=== PATIENT | male | born 1955 | race Caucasian/White ===

== ENCOUNTER → 2020-02-20 11:04 | Outpatient (CLI) | payer OTHER, SELFPAY ==
[2020-02-20 12:35] LABS: Hemoglobin A1C% w Est Avg Glu 5.9 % (4.0-6.0)
== END ==
PROVIDERS: PCP Internal Medicine; Referring Provider Internal Medicine; Visit Provider Internal Medicine
DX: E11.9 Type 2 diabetes mellitus without complications (principal)
CPT/HCPCS: 36415; 83036

== ENCOUNTER → 2020-08-24 09:39 | Outpatient (CLI) | payer OTHER, SELFPAY ==
[2020-08-24 10:35] LABS: Add Manual Diff / Slide Review NO; Basophils Absolute Auto 0 /uL (0-100); Basophils Percent Auto 0.6 % (0-2); Eosinophils Absolute Auto 100 /uL (0-450); Eosinophils Percent Auto 1.9 % (2-4); Hematocrit 43.6 % (41-53); Hemoglobin 14.8 g/dL (13.5-17.5); Lymphocytes Absolute Auto 1600 /uL (1100-4500); Lymphocytes Percent Auto 25.8 % (25-40); Mean Corpuscular Hemoglobin 29.7 PG (26-34); Mean Corpuscular Volume 87.3 fL (80-100); Monocytes Absolute Auto 400 /uL (0-900); Monocytes Percent Auto 7.1 % (3-14); Neutrophils Absolute Auto 4000 /uL (1500-7000); Neutrophils Percent Auto 64.6 % (50-75); Platelet Count 165 X10^3/uL (150-400); Red Blood Cell Count 4.99 X10^6/uL (4.5-5.9); Red Cell Distribution Width 13.4 % (11.6-14.8); White Blood Cell Count 6.3 X10^3/uL (4.5-11.0)
[2020-08-24 10:36] LABS: Hemoglobin A1C% w Est Avg Glu 6.3 % (4.0-6.0)
[2020-08-24 10:51] LABS: Alanine Aminotransferase 24 IU/L (<50); Albumin 4.3 g/dL (3.5-5.0); Albumin Globulin Ratio 1.2 (1.0-2.8); Alkaline Phosphatase 109 U/L (38-126); Aspartate Aminotransferase 25 IU/L (17-59); BUN Creatinine Ratio 19.4 (6-22); Bilirubin Total 0.5 mg/dL (0.2-1.3); Blood Urea Nitrogen 19 mg/dL (9-20); Calcium 9.6 mg/dL (8.4-10.2); Carbon Dioxide 30 mmol/L (22-32); Chloride 106 mmol/L (98-107); Cholesterol 145 mg/dL (140-199); Estimated Glomerular Filt Rate > 60.0 mL/min (>60); Globulin 3.5 g/dL (1.7-4.1); Glucose 126 mg/dL (80-110); HDL Cholesterol 37 mg/dL (40-60); HEMOLYSIS < 15 (0-50); LDL Cholesterol Calculated 85 mg/dL (<100); Potassium 4.6 mmol/L (3.4-5.1); Sodium 142 mmol/L (137-145); Total Protein 7.8 g/dL (6.3-8.2); Triglycerides 114 mg/dL (35-150)
[2020-08-24 11:22] LABS: Prostate Specific Antigen 0.461 ng/mL (0.10-4.00)
== END ==
PROVIDERS: Referring Provider Family Medicine; Visit Provider Family Medicine
DX: K21.9 Gastro-esophageal reflux disease without esophagitis (principal); R73.03 Prediabetes; Z12.5 Encounter for screening for malignant neoplasm of prostate; I10 Essential (primary) hypertension
CPT/HCPCS: 36415; 80053; 80061; 83036; 84153; 85025

== ENCOUNTER → 2020-11-08 09:22 | Outpatient (CLI) | payer OTHER, SELFPAY ==
[2020-11-08 10:30] LABS: Hemoglobin A1C% w Est Avg Glu 6.5 % (4.0-6.0)
[2020-11-08 10:48] LABS: Alanine Aminotransferase 44 IU/L (<50); Albumin Globulin Ratio 1.2 (1.0-2.8); Alkaline Phosphatase 121 U/L (38-126); Aspartate Aminotransferase 33 IU/L (17-59); Bilirubin Total 0.5 mg/dL (0.2-1.3); Blood Urea Nitrogen 12 mg/dL (9-20); Calcium 9.5 mg/dL (8.4-10.2); Carbon Dioxide 30 mmol/L (22-32); Chloride 107 mmol/L (98-107); Cholesterol 99 mg/dL (140-199); Estimated Glomerular Filt Rate > 60.0 mL/min (>60); Globulin 3.3 g/dL (1.7-4.1); Glucose 127 mg/dL (80-110); HDL Cholesterol 38 mg/dL (40-60); HEMOLYSIS < 15 (0-50); LDL Cholesterol Calculated 41 mg/dL (<100); Potassium 4.4 mmol/L (3.4-5.1); Sodium 141 mmol/L (137-145); Total Protein 7.3 g/dL (6.3-8.2); Triglycerides 102 mg/dL (35-150)
== END ==
PROVIDERS: PCP Internal Medicine; Referring Provider Internal Medicine; Visit Provider Internal Medicine
DX: E11.9 Type 2 diabetes mellitus without complications (principal); E78.2 Mixed hyperlipidemia; G62.9 Polyneuropathy, unspecified; I10 Essential (primary) hypertension
CPT/HCPCS: 36415; 80053; 80061; 83036

== ENCOUNTER → 2020-12-01 09:05 | Outpatient (CLI) | payer OTHER, SELFPAY ==
[2020-12-01 10:24] LABS: COVID19 -Nasal RAPID Negative (Negative)
== END ==
PROVIDERS: PCP Internal Medicine; Visit Provider Surgery
DX: Z20.822 Contact with and (suspected) exposure to COVID-19 (principal)
CPT/HCPCS: 87635; C9803

== ENCOUNTER 2020-12-02 07:28 | Day surgery (SDC) | payer OTHER, SELFPAY ==
--- NOTE | 2020-12-02 | PATH_ITS ---
[facility] Accession Number: [id number] . 01 Material submitted: . PART A: duodenum - DUODENUM BIOPSY PART B: gastrointestinal site - STOMACH BIOPSY PART C: gastrointestinal site - POLYP X2 FROM STOMACH PART D: esophagus - ESOPHAGUS BIOPSY . 01 Clinical history: . EGD . 02 Diagnosis: A. Duodenum, Biopsy: Duodenal mucosa with no diagnostic abnormality. Negative for active inflammation, features of sprue, dysplasia, or malignancy. . B. Stomach, Biopsy: Antral and body-type mucosa with no diagnostic abnormality. No evidence of Helicobacter organisms on H/E stain. Negative for intestinal metaplasia. Negative for dysplasia and malignancy. . C. Stomach, Polyps x2, Biopsies: Fundic gland polyps. No evidence of Helicobacter organisms on H/E stain. Negative for intestinal metaplasia. Negative for dysplasia and malignancy. . D. Esophagus, Biopsy: Squamocolumnar junctional mucosa with specialized intestinal metaplasia, consistent with Daniel's esophagus. Negative for dysplasia and malignancy. [facility] 12/08/2020 1407 Local . 02 Comment: Part B: An immunohistochemical stain will be performed to evaluate for Helicobacter organisms and the results reported as an addendum. . 02 Electronically signed: . Corie Mead MD, Pathologist NPI- [id number] . 01 Gross description: . Part A: DUODENUM BIOPSY: Received in formalin are 2 fragment(s) of cervantes, soft tissue measuring 0.3 x 0.2 x 0.2 cm to 0.2 x 0.2 x 0.2 cm submitted entirely in 1 cassette(s) Part B: STOMACH BIOPSY: Received in formalin are 2 fragment(s) of cervantes, soft tissue measuring 0.5 x 0.3 x 0.2 cm to 0.3 x 0.2 x 0.2 cm submitted entirely in 1 cassette(s) Part C: POLYP X2 FROM STOMACH: Received in formalin are 3 fragment(s) of cervantes, soft tissue measuring 0.4 x 0.4 x 0.3 cm to 0.1 x 0.1 x 0.1 cm submitted entirely in 1 cassette(s) Part D: ESOPHAGUS BIOPSY: Received in formalin are 4 fragment(s) of ecrvantes, soft tissue measuring 0.3 x 0.2 x 0.2 cm to 0.1 x 0.1 x 0.1 cm submitted entirely in 1 cassette(s) /[facility] 12/06/2020 1305 Local . 02 Pathologist provided ICD-10: R13.10, K22.70 . 02 CPT . 854364, 949865, 240610, 316615, D95486 Performed at: 01 [facility] [address] [id number] MD Valentino Christy MD Phone: [phone] Performed at: 02 [facility] [address] [place] [id number] MD Corie Mead MD Phone: [phone]
--- NOTE | 2020-12-02 07:50 | PM.HP.1 ---
History of Present Illness History of Present Illness Date Patient Seen: 12/02/20 Time Patient Seen: 07:50 Chief complaint: EGD Narrative: This is a 65-year-old man with history of gastroesophageal reflux disease treated with omeprazole for the past 2 years. He also has type 2 diabetes which is controlled, and hypertension. He reports symptoms of abnormal swallowing, with needing to cough out his secretions several times during the day, resulting in regurgitating dark fluid into his mouth from the GI tract. He says he has been evaluated by ENT, and they felt that significant contributor to his symptoms was his acid reflux. He is concerned that, even on omeprazole daily he continues to have these symptoms. Interval events: The patient has full hearing loss in his right ear, which is new since his last visit in the office. ROS: Denies heartburn. Denies chest pain. Positive for cough, coughing up sputum, Thirteen system review is otherwise negative other than as mentioned below and in HPI. PE: GENERAL: Well groomed and cooperative. Appears stated age. Answers questions promptly and appropriately. Vital signs noted. HENT: Normocephalic, atraumatic. Hearing intact. EYES: Conjunctiva pink, sclera white, no periorbital swelling. CARDIOVASCULAR: Regular rate. No pedal edema. No sternal or chest wall tenderness palpation RESPIRATORY: Non-tachypneic, breathing comfortably on room air. GASTROINTESTINAL: Abdomen soft and non-distended, nontender, no epigastric tenderness. GENITALURINARY: No flank tenderness. MUSCULOSKELETAL: Equal tone and mass bilaterally. SKIN: Warm, dry, soft, appropriate color for ethnicity. No other lesions, rashes, or wounds. NEURO: Alert and Oriented X 3. No gross sensory deficits, or cognitive issues. PSYCH: Appropriate affect and mood. Patient History Medical History Diabetes type 2, controlled Foot pain GERD (gastroesophageal reflux disease) Hearing loss Hypertension Mixed hyperlipidemia Peripheral neuropathy Surgical History Anesthesia History of back surgery History of hand surgery History of hand surgery Family & Social History Family History Father Diabetes mellitus Stroke Mother Cancer Brother Diabetes mellitus Hypertension Stroke Sister Diabetes mellitus Sister Diabetes mellitus Social History: household members spouse Tobacco & Substance use: Smoking Status Never smoker alcohol intake former Meds Home Medications and Allergies Home Medications Medication Instructions Recorded Confirmed Type amlodipine 5 mg tablet 5 mg PO BID #180 tab 08/20/20 11/16/20 Rx atorvastatin 40 mg tablet 40 mg PO DAILY #90 tab 08/30/20 11/16/20 Rx vitamin B comp and C no.3 15 mg-10 1 cap PO DAILY 09/09/20 11/16/20 History mg-50 mg-5 mg-300 mg capsule triamcinolone acetonide 0.1 % 1 applic TOPICAL BID #80 g 11/16/20 11/16/20 Rx topical cream esomeprazole magnesium [Nexium 20 mg PO DAILY 12/02/20 12/02/20 History 24HR] Allergies Allergy/AdvReac Type Severity Reaction Status Date / Time No Known Drug Allergies Allergy Verified 12/02/20 07:53 Assessment & Plan Assessment and plan (1) Diabetes type 2, controlled: Qualifiers: Diabetes mellitus complication status: without complication Diabetes mellitus residential insulin use: without residential use Qualified Code(s): E11.9 - Type 2 diabetes mellitus without complications Status: Acute (2) Mixed hyperlipidemia: Status: Acute (3) Hypertension: Qualifiers: Hypertension type: essential hypertension Qualified Code(s): I10 - Essential (primary) hypertension Status: Chronic (4) GERD (gastroesophageal reflux disease): Qualifiers: Esophagitis bleeding: without hemorrhage Esophagitis presence: with esophagitis Qualified Code(s): K21.00 - Gastro-esophageal reflux disease with esophagitis, without bleeding Status: Chronic (5) Peripheral neuropathy: Qualifiers: Peripheral neuropathy type: idiopathic neuropathy, unspecified Qualified Code(s): G60.9 - Hereditary and idiopathic neuropathy, unspecified Status: Chronic Assessment & Plan narrative: Risks and benefits of screening EGD and possible biopsy were discussed with the patient including risk of bleeding, perforation, need for additional procedures, risks of anesthesia. The patient desires to proceed with the EGD procedure. COVID-19 COVID-19 status: Negative Result date/Date tested (Pos, Neg/Pending): 12/01/20 Time Spent With Patient Time with patient: 15-24 minutes Quality VTE Deep Vein Thrombosis/Pulmonary Embolism Present on Admission: No
[2020-12-02] MEDS: SODIUM CHLORIDE 0.9% 1,000 ML 200 ML IV (07:52)
[2020-12-02 07:55] VITALS: BP 147/78; PULSE 72; RESP 16; TEMP 36.6; O2SAT 99; BMI 32.1
--- NOTE | 2020-12-02 08:30 | PM.OP.ENDO ---
Operative Date/Time/Diagnoses Date of procedure: 12/02/20 Time of procedure: 08:30 Pre-op diagnosis: Chronic reflux symptoms unresponsive to omeprazole Post-op diagnosis: other (5 cm tongues of salmon-colored mucosa coming up into the esophagus consistent with Daniel's esophagus, gastric polyps consistent with PPI use, mild gastritis) Procedure & Clinicians Study performed: Esophagogastroduodenoscopy Procedural sedation performed by the endoscopist Biopsies of duodenum, stomach, distal esophagus with standard forceps Gastric polypectomy with cold snare Same procedure as scheduled: Yes Indications: Chronic reflux symptoms unresponsive to omeprazole Surgeon: Janene Arora Procedure Notes SCOAP/Timeout: Performed Procedure in detail: The patient was brought to the room and placed in left lateral decubitus position with all bony prominences padded. A bite block was positioned in the patient's mouth to protect the lips, teeth, and tongue for the procedure. A time-out was performed and then the patient was given procedural sedation starting with 4 mg of Versed and 100 mcg of fentanyl. Total of 6 mg of Versed and 100 micro g of fentanyl were given for the entire procedure. Vitals were monitored throughout the procedure and remained stable. Once adequately sedated, the procedure was begun. The lubricated gastroscope was passed through the bite block and across the tongue and into the esophagus without incident. A tubular view of the esophagus was maintained as the scope was advanced through the esophagus and into the stomach. The scope was advanced through the stomach and to the pylorus. The scope was gently popped through the pylorus and into the duodenal bulb. The scope was flexed and advanced into the second and third portions of the duodenum. The duodenum and duodenal bulb revealed some mild inflammatory changes. Biopsies were taken. The scope was withdrawn into the stomach. The stomach Revealed some mild inflammatory changes. Biopsies were taken. There were numerous polyps in the stomach consistent with PPI. Two were removed with cold snare to confirm they are benign on pathology. The scope was retroflexed and the gastric cardia was examined. The hiatus aas gaping around the scope consistent with a Hill grade 4 hiatal hernia. The scope was then straightened, and withdrawn into the esophagus. There were large tongues of salmon-colored mucosa coming up into the esophagus consistent with significant Daniel's esophagus. These were 3-5 cm in length. Multiple biopsies were taken. The remainder of the esophagus was centrally normal. There was a gastric inlet patch in the proximal esophagus. The scope was then withdrawn through the esophagus with a tubular view. The scope was then withdrawn from the patient the procedure was concluded. The patient tolerated the procedure well and was transferred to the PACU in stable condition. Sedation minutes: 17 Findings: Daniel's esophagus, gastritis and polyp (Benign-appearing gastric polyps) Specimen(s): other (Biopsies of duodenum, stomach, stomach polyps, distal esophagus) Complications: none Impression: Significant Daniel's esophagus, mild gastritis, benign appearing gastric polyps Post-procedure Recommendations: Other recommendation (Follow-up in the office to discuss biopsy results, increase PPI to 40 mg twice daily) Follow up: as needed Disposition: PACU
[2020-12-02] MEDS: LIDOCAINE 4% SOLN 50 ML 20 ML TOP (08:53)
[2020-12-02] MEDS: MIDAZOLAM 5 MG/5 ML VIAL IV (08:55)
[2020-12-02] MEDS: fentaNYL 250 MCG/5 ML INJ IV (08:56)
[2020-12-02 09:01] VITALS: BP 128/89; PULSE 69; RESP 17; TEMP 36.6; O2SAT 95
[2020-12-02 09:06] VITALS: BP 123/85; PULSE 74; RESP 12; O2SAT 94
[2020-12-02 09:11] VITALS: BP 127/81; PULSE 88; RESP 13; O2SAT 95
[2020-12-02 09:20] VITALS: BP 127/83; PULSE 83; RESP 19; TEMP 36.8; O2SAT 95
== END 2020-12-02 09:30 | disposition home or self-care (01) ==
PROVIDERS: PCP Internal Medicine; Referring Provider Surgery; Visit Provider Surgery
PROC: 0DJ08ZZ Inspection of Upper Intestinal Tract, Via Natural or Artificial Opening Endoscopic (ICD-10-PCS; CPT 43235; principal; 2020-12-02 08:30)
DX: K29.50 Unspecified chronic gastritis without bleeding (principal); E11.9 Type 2 diabetes mellitus without complications; E78.2 Mixed hyperlipidemia; I10 Essential (primary) hypertension; G62.9 Polyneuropathy, unspecified; K22.70 Barrett's esophagus without dysplasia; K31.7 Polyp of stomach and duodenum
CPT/HCPCS: 43251; 99152; J2250; J3010

== ENCOUNTER → 2021-02-08 10:20 | Outpatient (CLI) | payer OTHER, SELFPAY ==
--- NOTE | 2021-02-08 10:21 | DI.RAD.S_ITS ---
PROCEDURE: FL BARIUM SWALLOW INDICATIONS: pre op planning for anti reflux surgery COMPARISON: None. FINDINGS: Function: There is esophageal dysmotility. No elicited gastroesophageal reflux. There is normal transit of a calibrated barium tablet through the esophagus into the stomach. Morphology: Air-contrast images demonstrate normal mucosal morphology. Single contrast views show no esophageal strictures, extrinsic mass effects, or diverticula. Limited images of the stomach demonstrate normal appearance. IMPRESSION: Esophageal dysmotility. Dictated by: Toro Moscoso M.D. on 02/08/2021 at 13:35 Approved by: Toro Moscoso M.D. on 02/08/2021 at 13:36
== END ==
PROVIDERS: PCP Internal Medicine; Referring Provider Surgery; Visit Provider Surgery
DX: Z01.818 Encounter for other preprocedural examination (principal); K22.4 Dyskinesia of esophagus; K44.9 Diaphragmatic hernia without obstruction or gangrene; K22.70 Barrett's esophagus without dysplasia; K21.00 Gastro-esophageal reflux disease with esophagitis, without bleeding
CPT/HCPCS: 74220

== ENCOUNTER → 2021-04-11 08:39 | Outpatient (CLI) | payer OTHER, SELFPAY ==
[2021-04-11 11:15] LABS: Alanine Aminotransferase 33 IU/L (<50); Albumin 4.4 g/dL (3.5-5.0); Albumin Globulin Ratio 1.3 (1.0-2.8); Alkaline Phosphatase 123 U/L (38-126); Aspartate Aminotransferase 26 IU/L (17-59); BUN Creatinine Ratio 10.1 (6-22); Bilirubin Total 0.6 mg/dL (0.2-1.3); Blood Urea Nitrogen 10 mg/dL (9-20); Calcium 9.9 mg/dL (8.4-10.2); Carbon Dioxide 27 mmol/L (22-32); Chloride 107 mmol/L (98-107); Cholesterol 109 mg/dL (140-199); Estimated Glomerular Filt Rate > 60.0 mL/min (>60); Globulin 3.5 g/dL (1.7-4.1); Glucose 117 mg/dL (80-110); HDL Cholesterol 35 mg/dL (40-60); HEMOLYSIS < 15 (0-50); LDL Cholesterol Calculated 56 mg/dL (<100); Potassium 4.4 mmol/L (3.4-5.1); Sodium 142 mmol/L (137-145); Total Protein 7.9 g/dL (6.3-8.2); Triglycerides 90 mg/dL (35-150)
[2021-04-11 11:54] LABS: Creatinine Urine Random 156.5 mg/dL
[2021-04-11 12:00] LABS: Microalbumi Creatinin Ratio Ur 4.4 ug/mg CR (<30); Microalbumin Urine Random 0.7 mg/dL (0-1.6)
== END ==
PROVIDERS: PCP Internal Medicine; Referring Provider Internal Medicine; Visit Provider Internal Medicine
DX: E11.9 Type 2 diabetes mellitus without complications (principal); E78.2 Mixed hyperlipidemia; I10 Essential (primary) hypertension
CPT/HCPCS: 36415; 80053; 80061; 82043; 82570; 83036

== ENCOUNTER → 2021-05-16 13:09 | Outpatient (CLI) | payer OTHER, SELFPAY ==
--- NOTE | 2021-05-17 14:34 | PM.TREADMILL ---
Cardiac Stress Test Report Referral & Results Date Patient Seen: 05/17/21 Requesting provider: Saulo Walker Indication: Abnormal coronary calcium CT Rest ECG: Unremarkable Procedure Note: Today following both written and verbal informed consent the patient was exercised according to a standard Gordo protocol patient went for a total of 7 minutes 19 seconds achieving a maximum heart rate of 144 maximum systolic blood pressure of 172. This is approximately 10.1 METS. Exercise was terminated at this point because of targets were met. Patient was also given Cardiolite through a previously started Hep-Lock IV by the diagnostic imaging staff approximately 1 minute prior to the cessation of exercise. There are no ST-T segment changes Normal heart rate and blood pressure response Function aerobic impairment rates approximately 5% on the sedentary scale Impression: No ECG evidence of ischemia. Please see perfusion imaging report as well. Average exercise capacity Please note: Actual ECG tracings can be found in the PACS system.
--- NOTE | 2021-05-18 05:05 | DI.NM.S_ITS ---
PROCEDURE PERFORMED: Exercise treadmill stress and rest myocardial perfusion imaging with gating to assess ejection fraction and regional wall motion. DATE OF PROCEDURE: May 16, 2021 ORDERING PROVIDER: Saulo Walker MD INDICATIONS: The patient is a 65-year-old male with recent discovery of coronary artery calcification on chest CT. EXERCISE TREADMILL TESTING: The patient was able to exercise for 7 minutes 19 seconds on a standard Gordo protocol suggesting mildly impaired exercise capacity with an CYNDY of +7%. He had a normal heart rate and blood pressure response to exercise achieving a maximum heart rate of 144 BPM (92% of his predicted maximum). He had no chest discomfort. His resting ECG is normal and there are no ischemic changes with stress. There were no arrhythmias. At 6 minutes 15 seconds of exercise at a heart rate of 132 BPM, 25.5 millicuries of technetium-99m Myoview was injected. He was imaged 10 minutes later using a gated SPECT acquisition protocol. The day prior while at rest, he was injected with 25.5 millicuries of technetium-99m Myoview and was imaged 30 minutes later, again using a gated SPECT acquisition protocol. FINDINGS: RAW DATA: There is fairly good myocardial tracer uptake. Lung/heart ratio is normal at 0.37 with a normal TID ratio of 0.75. QUANTITATED GATED SPECT: Post-stress ejection fraction is estimated at 71% without any focal wall motion abnormality. Resting ejection fraction is estimated at 73% with borderline increased left ventricular volumes with a resting end- diastolic volume of 136 mL, possibly reflecting the patient's large BSA. MYOCARDIAL PERFUSION IMAGING: Post-stress supine images show a completely normal, homogeneous pattern of perfusion without any perfusion defects, supported by normal perfusion imaging in the prone position. The resting images show an identical perfusion pattern without any areas of improvement. IMPRESSION: 1. Normal myocardial perfusion study. 2. No evidence for myocardial ischemia or previous myocardial infarction. 3. Normal left ventricular systolic function with borderline increased left ventricular volumes, possibly reflecting the patient's large BSA. 4. Mildly impaired exercise capacity without angina or ECG evidence of ischemia. Parth Pope - RS/dior/imelda doc#: [id number]/job#: [id number] dd: 05/17/2021 17:25:00 dt: 05/18/2021 04:49:00 DICTATING MD/COPIES TO: Felix Jennings MD; Saulo Walker MD COPIES MNE: RADHA;
== END ==
PROVIDERS: PCP Internal Medicine; Referring Provider Internal Medicine; Visit Provider Internal Medicine
DX: Z01.812 Encounter for preprocedural laboratory examination (principal); I25.10 Atherosclerotic heart disease of native coronary artery without angina pectoris; I25.84 Coronary atherosclerosis due to calcified coronary lesion; Z20.822 Contact with and (suspected) exposure to COVID-19
CPT/HCPCS: 78452; 87635; 93016; 93017; 93018; A9502

== ENCOUNTER → 2021-05-16 14:30 | Outpatient (CLI) | payer OTHER, SELFPAY ==
[2021-05-16 15:53] LABS: COVID19 -Nasal RAPID Negative (Negative)
== END ==
PROVIDERS: PCP Internal Medicine; Referring Provider Physician Assistant; Visit Provider Physician Assistant
DX: Z01.812 Encounter for preprocedural laboratory examination (principal); Z20.822 Contact with and (suspected) exposure to COVID-19
CPT/HCPCS: 87635

== ENCOUNTER → 2021-12-26 07:36 | Outpatient (CLI) | payer MEDICARE, OTHER, SELFPAY ==
[2021-12-26 09:10] LABS: Hemoglobin A1C% w Est Avg Glu 7.1 % (4.0-6.0)
[2021-12-26 09:43] LABS: Alanine Aminotransferase 30 IU/L (<50); Albumin 4.5 g/dL (3.5-5.0); Albumin Globulin Ratio 1.3 (1.0-2.8); Alkaline Phosphatase 116 U/L (38-126); Aspartate Aminotransferase 25 IU/L (17-59); BUN Creatinine Ratio 12.2 (6-22); Bilirubin Total 0.5 mg/dL (0.2-1.3); Blood Urea Nitrogen 11 mg/dL (9-20); Calcium 9.6 mg/dL (8.4-10.2); Carbon Dioxide 26 mmol/L (22-32); Chloride 109 mmol/L (98-107); Cholesterol 100 mg/dL (140-199); Estimated Glomerular Filt Rate > 60.0 mL/min (>60); Globulin 3.5 g/dL (1.7-4.1); Glucose 153 mg/dL (80-110); HDL Cholesterol 30 mg/dL (40-60); LDL Cholesterol Calculated 50 mg/dL (<100); Potassium 4.1 mmol/L (3.4-5.1); Sodium 143 mmol/L (137-145); Triglycerides 99 mg/dL (35-150)
[2021-12-26 10:16] LABS: HEMOLYSIS < 15 (0-50); Prostate Specific Antigen Scrn 1.58 ng/mL (0.1-4.0)
== END ==
PROVIDERS: PCP Internal Medicine; Referring Provider Internal Medicine; Visit Provider Internal Medicine
DX: E11.9 Type 2 diabetes mellitus without complications (principal); E78.2 Mixed hyperlipidemia; Z12.5 Encounter for screening for malignant neoplasm of prostate; I10 Essential (primary) hypertension
CPT/HCPCS: 36415; 80053; 80061; 83036; G0103

== ENCOUNTER → 2022-05-16 09:20 | Outpatient (CLI) | payer MEDICARE, OTHER, SELFPAY ==
[2022-05-16 10:49] LABS: COVID19 -Nasal RAPID Negative (Negative)
== END ==
PROVIDERS: PCP Internal Medicine; Visit Provider Surgery
DX: Z20.822 Contact with and (suspected) exposure to COVID-19 (principal); Z01.812 Encounter for preprocedural laboratory examination
CPT/HCPCS: 87635; C9803

== ENCOUNTER 2022-05-17 11:26 | Day surgery (SDC) | payer MEDICARE, OTHER, SELFPAY ==
--- NOTE | 2022-05-17 | PATH_ITS ---
[facility] Accession Number: [id number] . 01 Material submitted: . PART A: gastrointestinal site - GASTRIC POLYP PART B: gastrointestinal site - GASTRIC EROSIONS BIOPSY PART C: gastrointestinal site - 40CM GASTRIC BIOPSY PART D: gastrointestinal site - 42CM GASTRIC BIOPSY PART E: colon - 40 CM COLON POLYP . 01 Clinical history: . COLONOSCOPY/EGD . 01 Diagnosis: A. Gastric Polyp, Biopsy: Fundic gland polyp. No evidence of Helicobacter organisms on H/E stain. Negative for intestinal metaplasia. Negative for dysplasia and malignancy. . B. Gastric Erosions, Biopsy: Gastric mucosa with mild features of reactive gastropathy. Negative for Helicobacter organisms by immunohistochemistry. Negative for intestinal metaplasia. Negative for dysplasia or malignancy. . C. Designated Stomach at 40 cm, Biopsy: Squamocolumnar junctional mucosa with specialized intestinal metaplasia, consistent with Daniel's esophagus. Negative for dysplasia and malignancy. . D. Designated Stomach at 42 cm, Biopsy: Proximal gastric-type mucosa with specialized intestinal metaplasia, consistent with Daniel's esophagus. Negative for dysplasia and malignancy. . E. Colon Polyp at 40 cm, Biopsy: Hyperplastic polyp. [facility] 05/22/2022 1224 Local . 01 Electronically signed: . Jose Elias Merritt MD, PhD, Pathologist NPI- [id number] . 01 Gross description: . Part A: GASTRIC POLYP: Received in formalin are 3 fragment(s) of cervantes, soft tissue measuring 0.1 x 0.1 x 0.1 cm to 0.4 x 0.4 x 0.2 cm submitted entirely in 1 cassette(s) Part B: GASTRIC EROSIONS BIOPSY: Received in formalin are 2 fragment(s) of cervantes, soft tissue measuring 0.1 x 0.1 x 0.1 cm to 0.2 x 0.2 x 0.2 cm submitted entirely in 1 cassette(s) Part C: 40CM GASTRIC BIOPSY: Received in formalin are multiple fragment(s) of cervantes, soft tissue measuring 0.1 x 0.1 x 0.1 cm to 0.4 x 0.2 x 0.2 cm submitted entirely in 1 cassette(s) Part D: 42CM GASTRIC BIOPSY: Received in formalin are 4 fragment(s) of cervantes, soft tissue measuring 0.1 x 0.1 x 0.1 cm to 0.3 x 0.3 x 0.2 cm submitted entirely in 1 cassette(s) Part E: 40 CM COLON POLYP: Received in formalin are 2 fragment(s) of cervantes, soft tissue measuring 0.1 x 0.1 x 0.1 cm to 0.4 x 0.2 x 0.2 cm submitted entirely in 1 cassette(s) /[facility] 05/18/2022 1853 Local . 01 Microscopic: . B. An immunohistochemical stain was performed to evaluate for Helicobacter organisms and is negative. The control stain showed appropriate reactivity. . * This test was developed and its performance characteristics determined by [facility]. It has not been cleared or approved by the U.S. Food and Drug Administration. The FDA has determined that such clearance or approval is not necessary. This test is used for clinical purposes. It should not be regarded as investigational or for research. . 01 Pathologist provided ICD-10: K31.7, K29.60, K22.70, K63.5 . 01 CPT . 808576, 468991, 512414, 837352, 910379, T22888 Specimen Comment: A courtesy copy of this report has been sent to [phone] Performed at: 01 [facility] [address] [place] [address] [address] [facility], [place], [place] [id number] MD Valentino Christy MD Phone: [phone]
[2022-05-17 11:49] VITALS: BMI 31.4
[2022-05-17 11:56] VITALS: BP 151/86; PULSE 73; RESP 18; TEMP 36.9; O2SAT 95
--- NOTE | 2022-05-17 12:55 | PM.HP.1 ---
History of Present Illness History of Present Illness Date Patient Seen: 05/17/22 Chief complaint: Colonoscopy/EGD Narrative: History of Daniel's esophagus and need for screening colonoscopy. Patient History Medical History Barretts esophagus Diabetes type 2, controlled Foot pain GERD (gastroesophageal reflux disease) Hearing loss Hiatal hernia Hypertension Mixed hyperlipidemia Peripheral neuropathy Surgical History Anesthesia History of back surgery History of fundoplication (~03/2021) History of hand surgery History of hand surgery Family & Social History Family History Father Diabetes mellitus Stroke Mother Cancer Brother Diabetes mellitus Hypertension Stroke Sister Diabetes mellitus Sister Diabetes mellitus Social History: household members spouse Tobacco & Substance use: Smoking Status Never smoker alcohol intake former Substance Use Type does not use Meds Home Medications and Allergies Home Medications Medication Instructions Recorded Confirmed Type vitamin B comp and C no.3 15 mg-10 1 cap PO DAILY 09/09/20 05/17/22 History mg-50 mg-5 mg-300 mg capsule (B Complex Plus Vitamin C) amlodipine 5 mg tablet 5 mg PO BID #180 tabs 09/01/21 05/17/22 Rx atorvastatin 40 mg tablet 40 mg PO DAILY #90 tabs 09/01/21 05/17/22 Rx blood-glucose meter (Blood Glucose #1 ea 01/02/22 01/02/22 Rx Monitoring kit) blood sugar diagnostic (FreeStyle #100 ea 01/11/22 Rx Test strips) lancets 28 gauge (FreeStyle #100 ea 01/11/22 Rx Lancets) rutin 1 tab DAILY 05/17/22 History Allergies Allergy/AdvReac Type Severity Reaction Status Date / Time No Known Drug Allergies Allergy Verified 05/17/22 11:43 Exam Vital Signs (past 8 hours): - 05/17/22 11:56 Temperature 98.5 F Pulse Rate 73 Respiratory Rate 18 Blood Pressure 151/86 H Pulse Oximetry 95 Oxygen Delivery Method Room Air Oxygen Delivery Method Room Air Narrative Exam Narrative: Oropharynx free of lesions Chest clear to auscultation percussion Cardiac exam reveals no S3 or murmur Assessment & Plan Assessment & Plan narrative: History of Daniel's esophagus and need for colorectal cancer screening. EGD and colonoscopy to be performed. Risks, benefits, alternatives have been explained. Time Spent With Patient Critical Care time: I spent a total of [] minutes of critical care time on this patient's care today; this time is exclusive of procedural time.
--- NOTE | 2022-05-17 12:56 | PM.OP.EC ---
Operative Date/Time/Diagnoses Date of procedure: 05/17/22 Pre-op diagnosis: See indication and findings Procedure & Clinicians Study performed: EGD and colonoscopy Indications: Daniel's esophagus and need for colorectal cancer screening Surgeon: Sylwia Shaw Procedure Notes Procedure in detail: After informed consent was obtained the patient was placed in left lateral decubitus position. The video upper scope was placed into the oropharynx and with the patient's help swelled into the esophagus. The esophagus stomach and duodenum were carefully examined. On withdrawal retroflexed view the GE junction was performed. The scope was removed. The patient tolerated the procedure well. The patient was then turned and the colonoscope substituted. This was placed into the rectum slowly advanced cecum. Preparation was good. On slow withdrawal mucosa was carefully examined. The scope was removed. The patient tolerated procedure well. Blood loss none Complications none Sedation mac Findings EGD 1. Daniel's esophagus was present from 38 to at least 42 cm. This was circumferential with a Casselberry classification of C4M4. Biopsies were taken in 4 quadrants at 40 and 42 cm. 2. Intact antireflux procedure 3. Gastric polyps in body - biopsied 4. Three large erosions mid body - biopsied. 5. Normal duodenal bulb and sweep. Colonoscopy 1. 5 mm polyp at 40 cm biopsied to and removed 2. Otherwise negative colonoscopy to cecum Will follow up on biopsies but I would expect he will need follow-up for the Daniel's in 3 years in follow-up for colon polyp in 5 years
[2022-05-17 14:35] VITALS: BP 111/76; PULSE 78; RESP 18; TEMP 36.2; O2SAT 96
[2022-05-17 14:40] VITALS: BP 126/72; PULSE 66; RESP 13; O2SAT 95
[2022-05-17 14:45] VITALS: BP 138/76; PULSE 62; RESP 12; O2SAT 95
[2022-05-17 14:50] VITALS: BP 140/85; PULSE 63; RESP 14; O2SAT 95
[2022-05-17 14:53] VITALS: BP 146/87; PULSE 62; RESP 16; O2SAT 99
== END 2022-05-17 15:09 | disposition home or self-care (01) ==
PROVIDERS: PCP Internal Medicine; Referring Provider Internal Medicine Gastroenterology; Visit Provider Internal Medicine Gastroenterology
PROC: 0DJD8ZZ Inspection of Lower Intestinal Tract, Via Natural or Artificial Opening Endoscopic (ICD-10-PCS; CPT 45378; principal; 2022-05-17 14:00)
PROC: 0DJ08ZZ Inspection of Upper Intestinal Tract, Via Natural or Artificial Opening Endoscopic (ICD-10-PCS; CPT 43235; 2022-05-17 14:00)
DX: Z12.11 Encounter for screening for malignant neoplasm of colon (principal); K22.70 Barrett's esophagus without dysplasia; K21.9 Gastro-esophageal reflux disease without esophagitis; E78.5 Hyperlipidemia, unspecified; I10 Essential (primary) hypertension; E11.9 Type 2 diabetes mellitus without complications; K31.7 Polyp of stomach and duodenum; K31.9 Disease of stomach and duodenum, unspecified; K63.5 Polyp of colon
CPT/HCPCS: 45380; 43239; 82962; J2704; J3010

== ENCOUNTER → 2024-01-28 14:38 | Outpatient (CLI) | payer MEDICARE, OTHER, SELFPAY ==
--- NOTE | 2024-01-28 | DI.RAD.S_ITS ---
PROCEDURE: XR KNEE LT 3V INDICATIONS: Other instability, left knee TECHNIQUE: 3 views of the knee were acquired. COMPARISON: None. FINDINGS: Bones: No fractures or dislocations. No suspicious bony lesions. Lateral patellofemoral joint space narrowing and marginal osteophyte Soft tissues: No joint effusion. No suspicious soft tissue calcifications. IMPRESSION: Lateral patellofemoral joint space narrowing Approved by: Tacho Barron M.D. on 01/28/2024 at 19:10
== END ==
LOC: RAD 14:42
PROVIDERS: PCP Family Medicine; Referring Provider Family Medicine; Visit Provider Family Medicine
DX: M25.362 Other instability, left knee (principal)
CPT/HCPCS: 73562

== ENCOUNTER → 2024-03-11 09:47 | Outpatient (CLI) | payer MEDICARE, OTHER, SELFPAY ==
--- NOTE | 2024-03-11 09:50 | DI.RAD.S_ITS ---
PROCEDURE: FL BARIUM SWALLOW INDICATIONS: Dysphagia COMPARISON: [facility], , [place] BARIUM SWALLOW, 02/08/2021, 10:57. FINDINGS: Function: There is mildly weakened esophageal peristalsis, without tertiary contractions. Moderate elicited gastroesophageal reflux. There is normal transit of a calibrated barium tablet through the esophagus into the stomach. Morphology: Single contrast views show no esophageal strictures, extrinsic mass effects, or diverticula. Limited images of the stomach demonstrate normal appearance. IMPRESSION: Moderate esophageal dysmotility. Moderate gastroesophageal reflux. No obstructing mass. Dictated by: Mitesh Vazquez M.D. on 03/11/2024 at 11:53 Approved by: Mitesh Vazquez M.D. on 03/11/2024 at 11:54
== END ==
LOC: RAD 09:48
PROVIDERS: PCP Family Medicine; Referring Provider Surgery; Visit Provider Surgery
DX: K22.70 Barrett's esophagus without dysplasia (principal); K22.4 Dyskinesia of esophagus; K21.9 Gastro-esophageal reflux disease without esophagitis
CPT/HCPCS: 74220

== ENCOUNTER 2024-03-17 14:54 | Day surgery (SDC) | payer MEDICARE, OTHER, SELFPAY ==
--- NOTE | 2024-03-17 | PATH_ITS ---
[facility] Accession Number: [id number] No. of containers..01 Tissue . 01 Material submitted: . esophagus - DISTAL ESOPHAGUS . 01 Diagnosis: DISTAL ESOPHAGUS : Gastric-type glandular mucosa with goblet cell (Daniel's) metaplasia. No dysplasia identified. [facility] 03/21/2024 113 Local . 01 Electronically signed: . Valentino Christy MD, Pathologist NPI- [id number] . 01 Gross description: . Received in formalin with two patient identifiers and distal esophagus, are four cervantes soft tissue fragments, 0.3 to 0.4 cm in greatest dimension. Submitted entirely in A1. ([id number]) /MRV 03/21/20241134 Local . 01 Pathologist provided ICD-10: K22.70 . 01 CPT . 887902 Specimen Comment: A courtesy copy of this report has been sent to [phone] Performed at: [address] [facility] [address], [place], [place] [id number] MD Valentino Christy MD Phone: [phone]
[2024-03-17] MEDS: LACTATED RINGERS 1,000 ML 42 ML IV (15:35)
[2024-03-17 15:37] VITALS: BP 154/83; PULSE 69; RESP 16; TEMP 36.6; O2SAT 98
--- NOTE | 2024-03-17 16:21 | PM.PREOP ---
Pre-operative Note COVID-19 COVID-19 status: Not tested Interval Note History & Physical reviewed/Exam performed by Physician: Yes Changes to H&P: No ASA Class (for procedural sedation): III
--- NOTE | 2024-03-17 16:48 | PM.OP.EGD ---
Operative Date/Time/Diagnoses Date of procedure: 03/17/24 Time of procedure: 16:48 Pre-op diagnosis: Dysphagia and Daniel's esophagus Post-op diagnosis: same Procedure & Clinicians Study performed: Esophagogastroduodenoscopy Same procedure as scheduled: Yes Surgeon: Erickson Estrada Procedure Notes Procedure in detail: Surgeon: Erickson Estrada MD Anesthesia: Brooke Pinedo CRNA A timeout was performed. A bite blocked was placed. The patient was positioned in the left lateral decubitus position. Anesthesia was administered. The endoscope was inserted through the bite block and passed through the esophagus and stomach and into the duodenum. The duodenal mucosa appeared normal. The scope was withdrawn into the duodenal bulb and no abnormalities were seen. The scope was withdrawn into the stomach. No abnormalities were seen The rest of the stomach was normal. The scope was retroflexed and no significant hiatal hernia was noted. The scope was withdrawn into the esophagus and salmon-colored patches of mucosa were noted at the GE junction and random biopsies were taken with forceps from the areas of salmon-colored mucosa. The remainder of the esophagus was normal. The scope was withdrawn. The patient was awakened and brought to recovery. Sedation time: 6 minutes Findings: [place]-colored patches of mucosa at the GE junction, no significant hiatal Post-procedure Disposition: PACU
[2024-03-17 16:50] VITALS: BP 135/88; PULSE 73; RESP 12; TEMP 36.1; O2SAT 97
[2024-03-17 16:55] VITALS: BP 131/90; PULSE 73; RESP 18; O2SAT 95
[2024-03-17 17:01] VITALS: BP 157/85; PULSE 70; RESP 18; O2SAT 95
[2024-03-17 17:04] VITALS: BP 154/91; PULSE 66; RESP 16; TEMP 36.2; O2SAT 97
--- NOTE | 2024-03-17 17:21 | SUR.PHASEII ---
Pt really wanted to be discharged home. Pt denies any complaints and states he hates hospitals and wants to go . Pt d/preston with . No complaints voiced.
== END 2024-03-17 17:15 | disposition home or self-care (01) ==
PROVIDERS: PCP Family Medicine; Referring Provider Surgery; Visit Provider Surgery
PROC: 0DJ08ZZ Inspection of Upper Intestinal Tract, Via Natural or Artificial Opening Endoscopic (ICD-10-PCS; CPT 43239; principal; 2024-03-17 16:00)
DX: K22.70 Barrett's esophagus without dysplasia (principal)
CPT/HCPCS: 43239; 82962; J2704